=== PATIENT | male | born 1955 | race Caucasian/White ===

== ENCOUNTER 2017-09-20 14:26 | Inpatient (IN) | payer MEDICAID ==
[~2017-09-20] VITALS: Ht 200.7 cm; Wt 81.8 kg
--- NOTE | 2017-09-20 14:45 | NUR ---
PATIENT IS A/A/O X3 IN NO DISTRESS.
[2017-09-20 15:59] LABS: BASOPHILS % (AUTO) 0.4 % (0.0-2.0); EOSINOPHILS # (AUTO) 0.1 K/uL (0.0-0.7); EOSINOPHILS % (AUTO) 2.7 % (0.0-7.0); HEMATOCRIT 32.6 % (36.7-47.1); HEMOGLOBIN 10.4 g/dL (12.5-16.3); LYMPHOCYTES # (AUTO) 1.1 K/uL (20.0-40.0); LYMPHOCYTES % (AUTO) 26.5 % (20.5-51.5); MEAN CORPUSCULAR HEMOGLOBIN 23.6 uug (23.8-33.4); MEAN CORPUSCULAR HGB CONC 32 g/dL (32.5-36.3); MEAN CORPUSCULAR VOLUME 73.9 fL (73.0-96.2); MONOCYTES # (AUTO) 0.3 K/uL (2.0-10.0); MONOCYTES % (AUTO) 7.4 % (0.0-11.0); NEUTROPHILS # (AUTO) 2.7 K/uL (1.8-8.9); PLATELET COUNT (AUTO) 303 K/uL (152-348); RED BLOOD CELL COUNT(AUTO) 4.42 MIL/uL (4.06-5.63); WHITE BLOOD COUNT (AUTO) 4.3 K/uL (3.6-10.2)
[2017-09-20 16:05] LABS: CREATININE 0.9 mg/dL (0.6-1.3); POTASSIUM 4.3 mmol/L (3.5-5.1)
[2017-09-20 16:10] LABS: BILIRUBIN,DIRECT 0.1 mg/dL (0.0-0.2); BILIRUBIN,TOTAL 0.3 mg/dL (0.2-1.0); TOTAL PROTEIN, SERUM 7.2 g/dL (6.4-8.2)
[2017-09-20] MEDS ORDERED: NORMAL SALINE FLUSH 10 ML DISP.SYRIN ONE (16:15)
[2017-09-20] MEDS ORDERED: IOHEXOL 300MG/ML 100 ML INFUS..BTL ONE (16:15)
[2017-09-20] MEDS ORDERED: IV NORMAL SALINE 100 ML ONE (16:15)
[2017-09-20] MEDS ORDERED: SWABABLE VALVE TRANSFER SET EA MC ONE (16:15)
--- NOTE | 2017-09-20 17:07 | NUR ---
AWAITING TEST RESULTS....
[2017-09-20] MEDS ORDERED: VANCOMYCIN IV 1,000 MG in IV DEXTROSE 5% 250 ML IV ONE (17:45)
[2017-09-20] MEDS ORDERED: VANCOMYCIN IV 200 ML ONE (17:53)
--- NOTE | 2017-09-20 18:13 | NUR ---
PATIENT IS AWAKE AND ALERT WITH NO NEW COMPLAINTS. IV ABX INFUSING....
[2017-09-20] MEDS ORDERED: HYDROCODONE/APAP 5-325MG TABLET PO PRN (18:15)
[2017-09-20] MEDS ORDERED: MAGNESIUM HYDROXIDE 30 ML LIQUID UDC PO PRN (18:15)
[2017-09-20] MEDS ORDERED: ACETAMINOPHEN 325 MG TABLET PO PRN (18:15)
[2017-09-20] MEDS ORDERED: ONDANSETRON 4 MG/2 ML VIAL IV PRN (18:15)
[2017-09-20] MEDS ORDERED: Z GUARD REMEDY PASTE 57 GM TUBE TOP PRN (18:15)
[2017-09-20] MEDS ORDERED: TRAM50TA2 PO (18:22)
[2017-09-20] MEDS ORDERED: SENN-167 PO (18:22)
[2017-09-20] MEDS ORDERED: LISI10TA5 PO (18:23)
[2017-09-20] MEDS ORDERED: POLY17PO4 PO (18:23)
[2017-09-20] MEDS ORDERED: AMLO5TAB4 PO (18:25)
[2017-09-20] MEDS ORDERED: FERR325T24 PO (18:25)
--- NOTE | 2017-09-20 19:01 | NUR ---
HANDOFF REPORT GIVEN TO SCOTT DUMONT
--- NOTE | 2017-09-20 19:55 | NUR ---
Pt. admitted to [facility] , under care of Dr. ZIA MCCARTHY Diagnosis: Abscess Belongs List completed. MRSA swab done.
--- NOTE | 2017-09-20 20:02 | NUR ---
CLINICAL PHARMACY NOTE:VANCOMYCIN DOSING Request for vancomycin dosing on 61 y/o male 6' 160lbs for abdominal abscess. Temp 97.9 BUN 18 Scr 0.9 WBC 4.3 received vancomycin 1gm in ER Continue vancomycin 1250mg IVPB q12h. Estimate trough 16. Will order trough level prior to 4th dose. Will continue to monitor
[2017-09-20 20:24] VITALS: BP 134/93
--- NOTE | 2017-09-20 20:30 | NUR ---
RECEIVED PT FROM ER VIA GURNEY . PT IS AWAKE, ALERT, ORIENTEDX4. PT ADMITTED UNDER THE CARE OF DR. PORTILLO.DX: ABSCESS. BELONGING LIST DONE. ADMISSION PROCESS AND CARE PLAN INITIATED. LONG TERM ASSESSMENT DONE. SAFETY AND COMFORT PROVIDED. CALL LIGHT WITHIN REACH. WILL CONTINUE TO MONITOR.
[2017-09-21] MEDS: VANCOMYCIN IV 1,250 MG in IV DEXTROSE 5% 500 ML IV SCH ×2 (05:04→18:19)
[2017-09-21 05:24] VITALS: BP 135/95
--- NOTE | 2017-09-21 06:09 | NUR ---
PT SLEPT THROUGHOUT THE SHIFT, PT SHOWS NO SIGNS OF DISTRESS. PRESCRIBED MEDICATION GIVEN AND PT TOLERATED IT WELL. PT NO COMPLAIN OF PAIN. CHANGE DRESSING OF PT. CALL LIGHT WITHIN REACH. BED ALARM ON, BED IN LOW POSITION AND SIDE RAILS UPX2. WILL ENDORSE TO DAYSHIFT NURSE.
[2017-09-21 06:17] LABS: BASOPHILS # (AUTO) 0.1 K/uL (0.0-8.0); BASOPHILS % (AUTO) 2.7 % (0.0-2.0); EOSINOPHILS # (AUTO) 0.1 K/uL (0.0-0.7); EOSINOPHILS % (AUTO) 2.6 % (0.0-7.0); HEMATOCRIT 31.5 % (36.7-47.1); LYMPHOCYTES # (AUTO) 0.9 K/uL (20.0-40.0); LYMPHOCYTES % (AUTO) 20.8 % (20.5-51.5); MEAN CORPUSCULAR HEMOGLOBIN 23.6 uug (23.8-33.4); MEAN CORPUSCULAR HGB CONC 32 g/dL (32.5-36.3); MEAN CORPUSCULAR VOLUME 74.5 fL (73.0-96.2); MONOCYTES # (AUTO) 0.3 K/uL (2.0-10.0); MONOCYTES % (AUTO) 6.9 % (0.0-11.0); NEUTROPHILS # (AUTO) 2.9 K/uL (1.8-8.9); PLATELET COUNT (AUTO) 251 K/uL (152-348); RED BLOOD CELL COUNT(AUTO) 4.23 MIL/uL (4.06-5.63); WHITE BLOOD COUNT (AUTO) 4.3 K/uL (3.6-10.2)
[2017-09-21 06:26] LABS: CREATININE 0.9 mg/dL (0.6-1.3); MAGNESIUM 1.8 mg/dL (1.8-2.4); PHOSPHOROUS 4.7 mg/dL (2.5-4.9); POTASSIUM 4.1 mmol/L (3.5-5.1)
--- NOTE | 2017-09-21 07:25 | NUR ---
received report from meat cooler nurse, patient in bed awake, no distress noted at this time, bed in low position, side rails up x2, bed alarm on. Requested that patient call when he first gets up in order to evaluate functional status.
[2017-09-21 11:17] VITALS: BP 128/87
[2017-09-21 11:21] LABS: *BILIRUBIN,URIN NEGATIVE (NEGATIVE); *BLOOD, URINE NEGATIVE (NEGATIVE); *CLARITY,URINE CLEAR (CLEAR); *COLOR,URINE YELLOW (YELLOW); *KETONES,URINE NEGATIVE (NEGATIVE); *PROTEIN,URINE NEGATIVE (NEGATIVE); *UROBILINOGEN,URINE 0.2 E.U./dl (NORMAL); LEUKOCYTE ESTERASE ,URINE NEGATIVE (NEGATIVE); NITRITE, URINE NEGATIVE (NEGATIVE); PH,URINE 6.5 (5.0-8.0); UGLUCOSE NEGATIVE (NEGATIVE)
[2017-09-21 11:26] LABS: BACTERIA,URINE FEW /HPF (NONE SEEN); RBC,URINE 0-3 /HPF (0-3); SQUAMOUS EPITHELIAL CELL,UR NONE SEEN /HPF (NONE SEEN); WBC,URINE 0-3 /HPF (0-3)
--- NOTE | 2017-09-21 13:47 | NUR ---
WOUND CARE CONSULT: PT FOLLOWED BY SURGICAL TEAM. DEFER TO SURGICAL TEAM FOR WOUND TREATMENT PLAN. ALL SKIN PROTECTION MEASURES IN PLACE AND DISCUSSED WITH NURSING STAFF. MD IN AGREEMENT WITH PLAN OF CARE. WILL SEE PRN.
--- NOTE | 2017-09-21 14:42 | NUR ---
CLINICAL PHARMACY NOTE:VANCOMYCIN DOSING To continue vancomycin dosing on 61 y/o male 6' 160lbs for abdominal abscess. Temp 97.6 BUN 21 Scr 0.9 WBC 4.3 Trough: pending tomorrow 09/22 at 0530 As renal function stable, will continue vancomycin 1250mg IVPB q12h. Estimate trough 16. Trough ordered before 4th scheduled dose (due 09/22 @ 0530). RN endorsed to hold dose if Tr >20. Will check level in am and adjust as needed. Will follow
[2017-09-21 15:50] VITALS: BP 136/90
[2017-09-21] MEDS: SODIUM HYPOCHLORITE 0.25% 480 ML BOTTLE TOP SCH (17:00)
--- NOTE | 2017-09-21 17:30 | NUR ---
Wound care performed, patient tolerated well. Wound culture taken to lab.
--- NOTE | 2017-09-21 18:59 | NUR ---
Patient has been cooperative with care, call light within reach, no distress noted, bed in low position, side rails up x2.
[2017-09-21 19:31] VITALS: BP 133/85
--- NOTE | 2017-09-21 19:32 | NUR ---
Received pt. on bed, watching TV, alert, oriented and verbally responsive. Denies of any pain. Vancomycin IV infusing well, no redness or infiltration noted. Bed on low position, locked, side rails up x2 and call light in reach. will continue to monitor the pt.
[2017-09-22 03:37] VITALS: BP 133/89
[2017-09-22] MEDS: VANCOMYCIN IV 1,250 MG in IV DEXTROSE 5% 500 ML IV SCH ×2 (06:40→16:54)
[2017-09-22] MEDS: SODIUM HYPOCHLORITE 0.25% 480 ML BOTTLE TOP SCH (09:52)
--- NOTE | 2017-09-22 10:12 | NUR ---
CLINICAL PHARMACY NOTE:VANCOMYCIN DOSING S: To continue vancomycin dosing on 61 y/o male 6' 160lbs for abdominal abscess. O: Temp 97.9 BUN 21 (09/21) Scr 0.9 (09/21) WBC 4.3 (09/21) Trough: 12.1 (on 09/22 at 0530) Plan: Since vanco trough level is 12.1 mcg/ml, will change vanco dose from vancomycin 1250mg IVPB q12h to vanco 1250 mg IVPB q10h for predicted vanco trough level of 16 mcg/ml at steady state. 2nd dose is due today at 1600. Plan to order vanco trough before 4th scheduled dose (not yet ordered). Will follow
[2017-09-22 11:24] VITALS: BP 116/87
[2017-09-22 15:24] VITALS: BP 115/73
[2017-09-22 19:00] VITALS: BP 122/80
--- NOTE | 2017-09-22 19:03 | NUR ---
PATIENT HAS BEEN COOPERATIVE WITH CARE, ALLL NEEDS MET. NO DISTRESS NOTED THROUGHOUT SHIFT. CURRENTLY PATIENT IN BED, BED IN LOW POSITION, SIDE RAILS UP X2.
--- NOTE | 2017-09-22 20:00 | NUR ---
RECEIVED PATIENT AWAKE IN BED, WATCHING TV. PATIENT IS A/O X4. DENIES PAIN OR DISCOMFORT AT THIS TIME. H/L INTACT AND PATENT, NOTED TO RIGHT HAND #22 GAUGE. DRESSINGS NOTED TO AFFECTED AREAS, C/D/I. CALL LIGHT IN REACH. ALL NEEDS ATTENDED. WILL CONTINUE TO MONITOR.
[2017-09-23] MEDS: VANCOMYCIN IV 1,250 MG in IV DEXTROSE 5% 500 ML IV SCH ×3 (02:04→22:06)
[2017-09-23 04:00] VITALS: BP 125/90
--- NOTE | 2017-09-23 06:03 | NUR ---
PATIENT ASLEEP IN BED. SLEPT WELL THROUGHOUT THE NIGHT. VS WNL. CALL LIGHT IN REACH. ALL NEEDS ATTENDED. WILL CONTINUE TO MONITOR.
--- NOTE | 2017-09-23 07:30 | NUR ---
RECEIVED PATIENT ON BED, ASLEEP, A AND O X 3-4. NO ACUTE DISTRESS NOTED W/ IV SITE ON THE R HAND #22 INTACT AND PATENT. ON IVATB VANCOMYCING Q10. KPAD AT BEDSIDE. INDEPENDENT WITH ADLS. AMBULATORY WITH CANE. COMPLAINTS OF PAIN BUT REFUSES PAIN MEDICATION. COMFORT MEASURES PROVIDED. WILL CONTINUE TO MONITOR CLOSELY.
[2017-09-23] MEDS: SODIUM HYPOCHLORITE 0.25% 480 ML BOTTLE TOP SCH (09:35)
--- NOTE | 2017-09-23 09:58 | NUR ---
Wound treatment done on right flank and right inguinal area. small serousanguinous drainage noted on both sites. wound dressing change, well tolerated. will continue to monitor closely.
[2017-09-23 12:08] VITALS: BP 139/68
--- NOTE | 2017-09-23 13:19 | NUR ---
Vancomycin started now, later than scheduled dose, since med was unavailable till now. IVATB Infusing well, will continue to monitor closely.
--- NOTE | 2017-09-23 14:00 | NUR ---
SEEN AND EXAMINED BY DR. HIGGINS. NO NEW ORDERS.
--- NOTE | 2017-09-23 14:23 | NUR ---
CLINICAL PHARMACY NOTE:VANCOMYCIN DOSING S: To continue vancomycin dosing on 61 y/o male 6' 160lbs for abdominal abscess. O: Temp 98 BUN 21 (09/21) Scr 0.9 (09/21) WBC 4.3 (09/21) Trough: 17.8 today at 1130 Plan: As trough within range, will continue current regimen of vanco 1250mg q10h for now. Will consider rechecking trough if pt were to remain on prolonged course or status were to change. Will follow
[2017-09-23] MEDS: PIPERACILLIN/TAZOBACTAM/D5W 50 ML IV SCH ×2 (15:41→18:00)
--- NOTE | 2017-09-23 15:46 | NUR ---
Vancomycing just finished infusing. Zosyn IVATB just started right now at later time.
[2017-09-23 16:03] VITALS: BP 129/86
--- NOTE | 2017-09-23 18:05 | NUR ---
ZOSYN 1800 DOSE NON ADMINISTERED SINCE LAST ZOSYN DOSE WAS ADMINISTERED 2 HOURS AGO. DISCUSSED WITH PHARMACIST EARLIER TO SKIP 1800 DOSE. PATIENT IN STABLE CONDITION WILL CONTINUE TO MONITOR.
[2017-09-23 20:00] VITALS: BP 120/80
--- NOTE | 2017-09-23 20:00 | NUR ---
Received patient laying comfortably in bed. No acute distress noted. A/O x 4. C/O of pain or SOB. On Room air. Noted multiple skin issues; open skin on the right inguinal area covered with gauze and tape; right elbow wound covered in steri strips, abscess on the right flank covered with gauze and tape and left leg scab . Safety initiated. Call light within reach. Bed is in low and locked position. Bed alarm on. Fall precautions observed. Will continue to monitor.
[2017-09-24] MEDS: PIPERACILLIN/TAZOBACTAM/D5W 50 ML IV SCH ×4 (00:41→17:04)
[2017-09-24 03:57] VITALS: BP 127/93
--- NOTE | 2017-09-24 05:15 | NUR ---
Wound care provided d/t soiling. Will closely monitor.
--- NOTE | 2017-09-24 05:29 | NUR ---
No changes t/o shift. Patient slept t/o shift. Vital signs stable. No c/o pain. Good urine output. Safety and comfort measures maintained t/o shift. All meds given as ordered. All needs met.
[2017-09-24] MEDS: VANCOMYCIN IV 1,250 MG in IV DEXTROSE 5% 500 ML IV SCH ×2 (08:32→17:04)
[2017-09-24] MEDS: SODIUM HYPOCHLORITE 0.25% 480 ML BOTTLE TOP SCH (08:57)
--- NOTE | 2017-09-24 15:11 | NUR ---
CLINICAL PHARMACY NOTE:VANCOMYCIN DOSING S: To continue vancomycin dosing on 61 y/o male 6' 160lbs for abdominal abscess. O: Temp 97.9 BUN 21 (09/21) Scr 0.9 (09/21) WBC 4.3 (09/21) Trough: 17.8 yesterday at 1130 Plan: Will continue current regimen of vanco 1250mg q10h for now. Will check renal function in am to adjust the dose if needed. Will consider rechecking trough if pt were to remain on prolonged course or status were to change. Will follow
[2017-09-24 15:14] VITALS: BP 113/77
--- NOTE | 2017-09-24 18:39 | NUR ---
PT HAS A NEW IV LEFT FOREARM #20 PATENT AND INTACT. COMPLIANT WITH MEDICATIONS, DIET, AND ALLOWS CARE. PT HAS NO SIGNS OF ACUTE DISTRESS. CONTINUE TO MONITOR PT.
[2017-09-24] MEDS: LEVOFLOXACIN 750 MG TABLET PO SCH (19:00)
--- NOTE | 2017-09-24 19:00 | NUR ---
PATIENT REFUSE LEVAQUIN PO. DESPITE EXLAINING THE IMPORTANCE OF TAKING THE MEDICATION, HE STILL REFUSES THE MEDICATION. HE SAYS, "I'LL TAKE THE MEDICATION AFTER SEEING THE ID DOCTOR". HE DOES NOT RECALL SEEING THE ID DOCTOR INFORMING HIM OF THE CHANGE OF MEDICATION. WILL CONTINUE TO MONITOR.
[2017-09-24 19:31] VITALS: BP 122/76
--- NOTE | 2017-09-24 19:52 | NUR ---
Received patient laying comfortably in bed. No acute distress noted. A/O x 4. NO C/O of pain or SOB. On Room air. Noted multiple skin issues; open skin on the right inguinal area covered with ABD pads and tape; right elbow wound covered in steri strips, abscess on the right flank covered with gauze and tape and left leg scab, open to air. Safety initiated. Call light within reach. Bed is in low and locked position. Bed alarm on. Fall precautions observed. Will continue to monitor.
[2017-09-25 03:40] VITALS: BP 144/98
--- NOTE | 2017-09-25 05:47 | NUR ---
No changes t/o shift. Patient slept t/o shift. Vital signs stable. No c/o pain. Good urine output. Safety and comfort measures maintained t/o shift. All meds given as ordered. However, he did refuse his Levaquin PO. Dressing on his right flank and inguinal area C/D/I. All needs met.
[2017-09-25 07:12] LABS: CREATININE 0.9 mg/dL (0.6-1.3); POTASSIUM 4.1 mmol/L (3.5-5.1)
[2017-09-25] MEDS ORDERED: LEVO750T21 PO (08:52)
[2017-09-25] MEDS: SODIUM HYPOCHLORITE 0.25% 480 ML BOTTLE TOP SCH (09:28)
[2017-09-25 11:18] VITALS: BP 123/85
[2017-09-25 15:18] VITALS: BP 126/88
[2017-09-25] MEDS ORDERED: LISINOPRIL 10 MG TABLET PO ONE (16:30)
[2017-09-25] MEDS ORDERED: CLONIDINE HCL 0.1 MG TABLET PO ONE (16:30)
[2017-09-25 16:58] VITALS: BP 144/118
[2017-09-25] MEDS: LEVOFLOXACIN 750 MG TABLET PO SCH (19:13)
--- NOTE | 2017-09-25 19:49 | NUR ---
Received patient awake & alert no SOB denies chest pain. Aware that he will be discharged today to [facility]. Vital signs WNL. Awaiting for transportation, picking table worker time is 8:00pm.
--- NOTE | 2017-09-25 20:35 | NUR ---
PT D/C TO [facility] VIA AMBULANCE AT 2020 UNDER THE CARE OF 2 EMT'S. REPORT WAS GIVEN TO NURSE SHERRY AT [facility]. PT STABLE AT TIME OF D/C, NO COMPLAINTS.
[2017-09-26] MEDS ORDERED: LISINOPRIL 10 MG TABLET PO SCH (09:00)
== END 2017-09-25 20:35 | DRG 344 ==
LOC: ER 14:29 → MED 19:47
PROVIDERS: ADMIT Internal Medicine; ATTEND Internal Medicine
DX: M60.08 Infective myositis, other site (principal); E43 Unspecified severe protein-calorie malnutrition; E87.1 Hypo-osmolality and hyponatremia; E88.09 Other disorders of plasma-protein metabolism, not elsewhere classified; F20.9 Schizophrenia, unspecified; L02.415 Cutaneous abscess of right lower limb; I10 Essential (primary) hypertension; F10.20 Alcohol dependence, uncomplicated; D50.9 Iron deficiency anemia, unspecified; B96.1 Klebsiella pneumoniae [K. pneumoniae] as the cause of diseases classified elsewhere; K80.20 Calculus of gallbladder without cholecystitis without obstruction; Z82.49 Family history of ischemic heart disease and other diseases of the circulatory system; Z82.3 Family history of stroke; H54.61 Unqualified visual loss, right eye, normal vision left eye; Z79.899 Other long term (current) drug therapy; S22.31XD Fracture of one rib, right side, subsequent encounter for fracture with routine healing; W19.XXXD Unspecified fall, subsequent encounter; Y90.9 Presence of alcohol in blood, level not specified; K44.9 Diaphragmatic hernia without obstruction or gangrene; Z68.20 Body mass index [BMI] 20.0-20.9, adult; R59.9 Enlarged lymph nodes, unspecified; L98.8 Other specified disorders of the skin and subcutaneous tissue; T14.8XXD Other injury of unspecified body region, subsequent encounter; M62.50 Muscle wasting and atrophy, not elsewhere classified, unspecified site; D63.8 Anemia in other chronic diseases classified elsewhere; K21.9 Gastro-esophageal reflux disease without esophagitis
CPT/HCPCS: 36415; 83605; 83735; 84100; 85025; 85730; 87040; 87070; 87077; 87086; 97110; 97112; 97116; 97165; A4663; J2543; J3370; J3490; J7040; J7050; J7060; Q9967